=== PATIENT | female | born 1945 | race Caucasian/White ===

== ENCOUNTER 2020-11-17 09:08 | Outpatient (CLI) | payer MEDICARE | END 2020-11-17 09:09 | disposition home or self-care (01) | LOC: CSHCT 09:08 | PROVIDERS: ATTEND Internal Medicine Hematology & Oncology | DX: C43.62 Malignant melanoma of left upper limb, including shoulder (principal) | CPT/HCPCS: 71260; 74177; 82565 ==

== ENCOUNTER 2021-06-13 09:43 | Outpatient (CLI) | payer MEDICARE | END 2021-06-13 09:44 | disposition home or self-care (01) | LOC: CSHCT 09:43 | PROVIDERS: ATTEND Internal Medicine Hematology & Oncology | DX: C43.62 Malignant melanoma of left upper limb, including shoulder (principal); N28.89 Other specified disorders of kidney and ureter | CPT/HCPCS: 71260; 74177; 82565 ==

== ENCOUNTER 2021-12-21 08:33 | Outpatient (CLI) | payer MEDICARE | END 2021-12-21 08:34 | disposition home or self-care (01) | LOC: CSHCT 08:33 | PROVIDERS: ATTEND Internal Medicine Hematology & Oncology | DX: C43.62 Malignant melanoma of left upper limb, including shoulder (principal) | CPT/HCPCS: 71260; 74177; 82565 ==

== ENCOUNTER 2022-06-04 15:55 | Outpatient (CLI) | payer MEDICARE | END 2022-06-04 15:56 | disposition home or self-care (01) | LOC: CSHMAMMO 15:55 | PROVIDERS: ATTEND Internal Medicine | DX: Z12.31 Encounter for screening mammogram for malignant neoplasm of breast (principal); Z80.3 Family history of malignant neoplasm of breast | CPT/HCPCS: 77063; 77067 ==

== ENCOUNTER 2022-06-26 09:36 | Outpatient (CLI) | payer MEDICARE ==
[2022-06-26] MEDS ORDERED: Iopamidol 300 61% 100 ML VIAL FS ONE (13:44)
== END 2022-06-26 09:37 | disposition home or self-care (01) ==
LOC: CSHCT 09:36
PROVIDERS: ATTEND Internal Medicine Hematology & Oncology
DX: C43.62 Malignant melanoma of left upper limb, including shoulder (principal)
CPT/HCPCS: 71260; 74177; 82565; Q9967

== ENCOUNTER 2024-07-06 07:59 | Outpatient (CLI) | payer MEDICARE | END 2024-07-06 08:00 | disposition home or self-care (01) | LOC: CSHMAMMO 07:59 | PROVIDERS: ATTEND Internal Medicine | DX: Z12.31 Encounter for screening mammogram for malignant neoplasm of breast (principal); Z80.3 Family history of malignant neoplasm of breast | CPT/HCPCS: 77063; 77067 ==